=== PATIENT | female | born 1955 | race Asian ===

== ENCOUNTER 2017-11-08 09:33 | Emergency (ER) | payer MEDICARE ==
[~2017-11-08] VITALS: Ht 160 cm; Wt 58.0 kg
[2017-11-08 09:36] VITALS: BP 152/84
== END 2017-11-08 10:38 | disposition home or self-care (01) ==
LOC: ER 09:48
DX: S16.1XXA Strain of muscle, fascia and tendon at neck level, initial encounter (principal); S33.5XXA Sprain of ligaments of lumbar spine, initial encounter; M79.1 Myalgia; M81.0 Age-related osteoporosis without current pathological fracture; Z91.041 Radiographic dye allergy status; Z88.2 Allergy status to sulfonamides; Z88.8 Allergy status to other drugs, medicaments and biological substances; Z91.018 Allergy to other foods; Z87.81 Personal history of (healed) traumatic fracture; Z98.890 Other specified postprocedural states; V43.52XA Car driver injured in collision with other type car in traffic accident, initial encounter; Y93.89 Activity, other specified; Y92.488 Other paved roadways as the place of occurrence of the external cause
CPT/HCPCS: 99283